=== PATIENT | male | born 1965 | race Two or more races ===

== ENCOUNTER 2023-09-22 14:10 | Outpatient (CLI) | payer OTHER ==
[~2023-09-22 14:10] MED LIST: [UNRECOGNIZED DRUG - OTHER]
== END 2023-09-22 15:04 | disposition home or self-care (01) ==
LOC: SONOGRAMA 14:10
PROVIDERS: ATTEND Pathology Anatomic Pathology & Clinical Pathology
DX: D34 Benign neoplasm of thyroid gland (principal); E07.89 Other specified disorders of thyroid; E04.2 Nontoxic multinodular goiter